=== PATIENT | female | born 1985 | race African-American/Black ===

== ENCOUNTER 2017-05-21 14:00 | Emergency (ER) | payer OTHER ==
[~2017-05-21] VITALS: Ht 175.3 cm; Wt 81.6 kg
[~2017-05-21 14:00] MED LIST: CYCL10TA2 PO; NAPR-683 PO
[2017-05-21] MEDS ORDERED: ACETAMINOPHEN 325 MG TABLET. PO ONE (14:30)
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
[2017-05-21] MEDS ORDERED: CYCL5TAB PO (15:33)
[2017-05-21] MEDS ORDERED: IBUP-1060 PO (15:33)
[2017-05-21 15:50] VITALS: BP 127/81
== END 2017-05-21 16:03 | disposition home or self-care (01) ==
LOC: ER 14:00
DX: M25.511 Pain in right shoulder (principal); M54.5 Low back pain; Z88.0 Allergy status to penicillin; Z88.6 Allergy status to analgesic agent; Z91.018 Allergy to other foods; J45.909 Unspecified asthma, uncomplicated; V49.88XA Car occupant (driver) (passenger) injured in other specified transport accidents, initial encounter; Y93.89 Activity, other specified; Y99.8 Other external cause status; Y92.488 Other paved roadways as the place of occurrence of the external cause
CPT/HCPCS: 71020; 72100; 73030; 81025; 99284

== ENCOUNTER 2017-10-10 03:39 | Emergency (ER) | payer OTHER | END 2017-10-10 05:00 | disposition home or self-care (01) | LOC: ER 03:39 | DX: M25.511 Pain in right shoulder (principal); J45.909 Unspecified asthma, uncomplicated; Z88.0 Allergy status to penicillin; Z88.6 Allergy status to analgesic agent; Z91.018 Allergy to other foods; X58.XXXA Exposure to other specified factors, initial encounter; Y93.67 Activity, basketball; Y99.8 Other external cause status; Y92.89 Other specified places as the place of occurrence of the external cause | CPT/HCPCS: 99283 ==

== ENCOUNTER 2017-12-25 08:28 | Emergency (ER) | payer OTHER ==
[2017-12-25 08:43] LABS: BILIRUBIN,URINE NEGATIVE (NEG); CLARITY,URINE CLEAR; COLOR,URINE YELLOW; GLUCOSE,URINE NEGATIVE (NEG); NITRITE,URINE NEGATIVE (NEG); PROTEIN,URINE NEGATIVE (NEG-TRACE)
[2017-12-25 08:44] LABS: URINE HCG POC HCG NEGATIVE (Negative)
[2017-12-25 08:51] LABS: BACTERIA,URINE MODERATE /HPF (0-FEW); SQUAMOUS EPITHELIAL CELL,UR FEW /LPF
[2017-12-25] MEDS: ONDANSETRON PF 4 MG/2 ML VIAL. IV (09:25)
[2017-12-25] MEDS: IV NORMAL SALINE 1000ML BAG 1,000 ML IV (09:25)
[2017-12-25] MEDS: PANTOPRAZOLE IV PUSH 40 MG VIAL. IVP (09:25)
[2017-12-25] MEDS: DICYCLOMINE HCL 10 MG CAPSULE PO (09:26)
[2017-12-25 09:40] LABS: ADD MAN DIFF? NO
[2017-12-25 10:02] LABS: ANION GAP 7 (6-14); BLOOD UREA NITROGEN 9 mg/dL (7-20); BUN/CREATININE RATIO 10 (6-20); CALCIUM 8.7 mg/dL (8.5-10.1); CARBON DIOXIDE 26 mmol/L (21-32); CHLORIDE 106 mmol/L (98-107); CREATININE 0.9 mg/dL (0.6-1.0); GFR 88.4; GLUCOSE 90 mg/dL (70-99); POTASSIUM 3.7 mmol/L (3.5-5.1); SODIUM 139 mmol/L (136-145)
[2017-12-25 10:04] LABS: ETHANOL < 10 mg/dL (0-10)
[2017-12-25 10:07] LABS: ALBUMIN 3.6 g/dL (3.4-5.0); ALBUMIN/GLOBULIN RATIO 0.9 (1.0-1.7); ALK PHOS 66 U/L (46-116); ALT (SGPT) 16 U/L (14-59); AST (SGOT) 10 U/L (15-37); BASO % 0 % (0-3); EOS % 1 % (0-3); HEMATOCRIT 40.1 % (36.0-47.0); HEMOGLOBIN 13.4 g/dL (12.0-15.5); LIPASE 96 U/L (73-393); LYMPH # 1.4 x10^3/uL (1.0-4.8); LYMPH % 25 % (24-48); MEAN CORPUSCULAR HEMOGLOBIN 27 pg (25-35); MEAN CORPUSCULAR HGB CONC 33 g/dL (31-37); MEAN CORPUSCULAR VOLUME 81 fL (79-100); MONO # 0.4 x10^3/uL (0.0-1.1); MONO % 7 % (0-9); NEUT # 3.7 x10^3uL (1.8-7.7); NEUT % 67 % (31-73); PLATELET COUNT 216 x10^3/uL (140-400); RED BLOOD COUNT 4.98 x10^6/uL (3.50-5.40); RED CELL DISTRIBUTION WIDTH 13.8 % (11.5-14.5); TOTAL BILIRUBIN 0.3 mg/dL (0.2-1.0); TOTAL PROTEIN 7.4 g/dL (6.4-8.2); WHITE BLOOD COUNT 5.6 x10^3/uL (4.0-11.0)
[2017-12-25 10:09] LABS: AMPHETAMINE/METHAMPHETAMINE NEG (NEG); BARBITURATES NEG (NEG); BENZODIAZEPINES NEG (NEG); CANNABINOIDS POS (NEG); COCAINE NEG (NEG); ETHANOL, URINE NEG (NEG); METHADONE NEG (NEG); OPIATES NEG (NEG); PHENCYCLIDINE NEG (NEG)
== END 2017-12-25 11:03 | disposition home or self-care (01) ==
LOC: ER 08:28
DX: R11.2 Nausea with vomiting, unspecified (principal); R19.7 Diarrhea, unspecified; R10.84 Generalized abdominal pain; J45.909 Unspecified asthma, uncomplicated; Z88.0 Allergy status to penicillin; Z88.6 Allergy status to analgesic agent; Z91.018 Allergy to other foods
CPT/HCPCS: 36415; 80053; 80307; 81001; 81025; 83690; 85025; 87086; 96361; 96374; 96375; 99285-25; C9113; G0480; J2405; J7030

== ENCOUNTER 2019-02-04 02:43 | Emergency (ER) | payer MEDICAID, OTHER ==
[~2019-02-04] VITALS: Ht 175.3 cm; Wt 78.0 kg
[~2019-02-04 02:43] MED LIST changes: +ACET-704 PO; +BUTA1CAP31 PO; +CYCL5TAB PO; +DICY20TA3 PO; +IBUP-1060 PO; +ONDA4TAB10 SL; +ONDA4TAB7 PO; +SULF1TAB24 PO
[2019-02-04 03:30] VITALS: BP 106/55
[2019-02-04] MEDS ORDERED: TETRACAINE 0.5% OPHTH SOLUTION 4ML BOTTLE. ONE (03:34)
[2019-02-04] MEDS ORDERED: FLUORESCEIN OPHTH TEST STRIP. ONE (03:34)
[2019-02-04] MEDS ORDERED: ERYTHROMYCIN 0.5% OPHTH OINTMENT 1GM TUBE. ONE (03:35)
[2019-02-04] MEDS ORDERED: ERYT1OIN6 OP (03:50)
--- NOTE | 2019-02-04 03:50 | PHYS DOC ---
Past Medical History Past Medical History: Asthma Additional Past Medical Histor: seasonal allergies Past Surgical History: Additional Past Surgical Histo: facial surgery. Alcohol Use: Occasionally Drug Use: Marijuana Adult General Chief Complaint Chief Complaint: EYE PROBLEMS HPI HPI Patient is a 33 year old [f__sex] who presents with [] Review of Systems Review of Systems Constitutional: Denies fever or chills [] Eyes: Denies change in visual acuity, redness, or eye pain [] HENT: Denies nasal congestion or sore throat [] Respiratory: Denies cough or shortness of breath [] Cardiovascular: No additional information not addressed in HPI [] GI: Denies abdominal pain, nausea, vomiting, bloody stools or diarrhea [] : Denies dysuria or hematuria [] Musculoskeletal: Denies back pain or joint pain [] Integument: Denies rash or skin lesions [] Neurologic: Denies headache, focal weakness or sensory changes [] Endocrine: Denies polyuria or polydipsia [] All other systems were reviewed and found to be within normal limits, except as documented in this note. Current Medications Current Medications Current Medications Medications (Trade) Dose Ordered Sig/Isidro Start Time Stop Time Status Last Admin Dose Admin Erythromycin (Romycin) 1 inch STK-MED ONCE 02/04/19 03:35 02/04/19 03:36 DC Fluorescein Sodium (Ful-Huyen) 1 strip STK-MED ONCE 02/04/19 03:34 02/04/19 03:36 DC Tetracaine HCl (Tetracaine) 40 drop STK-MED ONCE 02/04/19 03:34 02/04/19 03:36 DC Allergies Allergies Allergies Coded Allergies Type Severity Reaction Last Updated Verified tomato Allergy Severe anaphylaxis 04/04/17 Yes Penicillins Allergy Intermediate shortness of breath 04/04/17 Yes aspirin Allergy Intermediate flares asthma up 04/04/17 Yes Physical Exam Physical Exam Constitutional: Well developed, well nourished, no acute distress, non-toxic appearance. [] HENT: Normocephalic, atraumatic, bilateral external ears normal, oropharynx moist, no oral exudates, nose normal. [] Eyes: PERRLA, EOMI, conjunctiva normal, no discharge. [] Neck: Normal range of motion, no tenderness, supple, no stridor. [] Cardiovascular:Heart rate regular rhythm, no murmur [] Lungs & Thorax: Bilateral breath sounds clear to auscultation [] Abdomen: Bowel sounds normal, soft, no tenderness, no masses, no pulsatile masses. [] Skin: Warm, dry, no erythema, no rash. [] Back: No tenderness, no CVA tenderness. [] Extremities: No tenderness, no cyanosis, no clubbing, ROM intact, no edema. [] Neurologic: Alert and oriented X 3, normal motor function, normal sensory function, no focal deficits noted. [] Psychologic: Affect normal, judgement normal, mood normal. [] EKG EKG [] Radiology/Procedures Radiology/Procedures [] Course & Med Decision Making Course & Med Decision Making Pertinent Labs and Imaging studies reviewed. (See chart for details) [] Dragon Disclaimer Dragon Disclaimer This electronic medical record was generated, in whole or in part, using a voice recognition dictation system. Departure Departure Impression: Primary Impression: Corneal abrasion Disposition: HOME, SELF-CARE Condition: STABLE Referrals: NO PCP (PCP) Patient Instructions: Eye - Corneal Abrasion, [id number] Scripts Erythromycin Base (Erythromycin) 1 Gm Oint...g. 0.25 INCH OP QID for 5 Days, MISC Prov: XI NOGUERA DO 02/04/19 Problem Qualifiers Primary Impression: Corneal abrasion Encounter type: initial encounter Laterality: left Qualified Codes: S05.02XA - Injury of conjunctiva and corneal abrasion without foreign body, left eye, initial encounter XI NOGUERA DO Feb 04, 2019 03:50
[2019-02-04] MEDS ORDERED: ERYTHROMYCIN 0.5% OPHTH OINTMENT 1GM TUBE. OS ONE (04:00)
[2019-02-04] MEDS ORDERED: TETRACAINE 0.5% OPHTH SOLUTION 4ML BOTTLE. OS ONE (04:00)
[2019-02-04] MEDS ORDERED: FLUORESCEIN OPHTH TEST STRIP. OS ONE (04:00)
[2019-02-04] MEDS ORDERED: IBUPROFEN 200 MG TABLET. PO ONE (04:30)
== END 2019-02-04 03:57 | disposition home or self-care (01) ==
LOC: ER 02:43
DX: S05.02XA Injury of conjunctiva and corneal abrasion without foreign body, left eye, initial encounter (principal); J45.909 Unspecified asthma, uncomplicated; Z98.890 Other specified postprocedural states; Z88.6 Allergy status to analgesic agent; Z88.0 Allergy status to penicillin; Z91.018 Allergy to other foods; X58.XXXA Exposure to other specified factors, initial encounter; Y93.89 Activity, other specified; Y92.89 Other specified places as the place of occurrence of the external cause; Y99.8 Other external cause status
CPT/HCPCS: 99283

== ENCOUNTER 2019-11-16 14:46 | Emergency (ER) | payer BC, MEDICAID ==
[~2019-11-16] VITALS: Ht 175.3 cm; Wt 82.0 kg
[2019-11-16 14:46] VITALS: BP 106/55
[~2019-11-16 14:46] MED LIST changes: +ERYT1OIN6 OP
[2019-11-16] MEDS ORDERED: diphenhydrAMINE HCL 25 MG CAPSULE PO ONE (15:00)
[2019-11-16] MEDS ORDERED: DEXAMETHASONE SOD PHOS 20 MG/5 ML VIAL. IM ONE (15:00)
[2019-11-16] MEDS ORDERED: PRED20TA PO (15:40)
--- NOTE | 2019-11-16 15:41 | PHYS DOC ---
Past Medical History Past Medical History: Asthma Additional Past Medical Histor: seasonal allergies Past Surgical History: Additional Past Surgical Histo: facial surgery. Smoking Status: Light Tobacco Smoker Alcohol Use: None Drug Use: Marijuana General Adult EDM: Chief Complaint: ALLERGIC REACTION HPI: HPI: Patient is a 34 year old [f__sex] who presents with [] Review of Systems: Review of Systems: Constitutional: Denies fever or chills. [] Eyes: Denies change in visual acuity. [] HENT: Denies nasal congestion or sore throat. [] Respiratory: Denies cough or shortness of breath. [] Cardiovascular: Denies chest pain or edema. [] GI: Denies abdominal pain, nausea, vomiting, bloody stools or diarrhea. [] : Denies dysuria. [] Musculoskeletal: Denies back pain or joint pain. [] Integument: Denies rash. [] Neurologic: Denies headache, focal weakness or sensory changes. [] Endocrine: Denies polyuria or polydipsia. [] Lymphatic: Denies swollen glands. [] Psychiatric: Denies depression or anxiety. [] Heart Score: Risk Factors: Risk Factors: DM, Current or recent (<one month) smoker, HTN, HLP, family history of CAD, obesity. Risk Scores: Score 0 - 3: 2.5% MACE over next 6 weeks - Discharge Home Score 4 - 6: 20.3% MACE over next 6 weeks - Admit for Clinical Observation Score 7 - 10: 72.7% MACE over next 6 weeks - Early Invasive Strategies Current Medications: Current Medications Medications (Trade) Dose Ordered Sig/[facility] Start Time Stop Time Status Last Admin Dose Admin Dexamethasone Sodium Phosphate (Decadron) 10 mg 1X ONCE 11/16/19 15:00 11/16/19 15:03 DC 11/16/19 15:07 10 MG Diphenhydramine HCl (Benadryl) 50 mg 1X ONCE 11/16/19 15:00 11/16/19 15:03 DC 11/16/19 15:07 50 MG Allergies: Allergies: Allergies Coded Allergies Type Severity Reaction Last Updated Verified tomato Allergy Severe anaphylaxis 04/04/17 Yes Penicillins Allergy Intermediate shortness of breath 04/04/17 Yes aspirin Allergy Intermediate flares asthma up 04/04/17 Yes Physical Exam: PE: Constitutional: Well developed, well nourished, no acute distress, non-toxic appearance. [] HENT: Normocephalic, atraumatic, bilateral external ears normal, oropharynx moist, no oral exudates, nose normal. [] Eyes: PERRLA, EOMI, conjunctiva normal, no discharge. [] Neck: Normal range of motion, no tenderness, supple, no stridor. [] Cardiovascular:Heart rate regular rhythm, no murmur [] Lungs & Thorax: Bilateral breath sounds clear to auscultation [] Abdomen: Bowel sounds normal, soft, no tenderness, no masses, no pulsatile masses. [] Skin: Warm, dry, no erythema, no rash. [] Back: No tenderness, no CVA tenderness. [] Extremities: No tenderness, no cyanosis, no clubbing, ROM intact, no edema. [] Neurologic: Alert and oriented X 3, normal motor function, normal sensory function, no focal deficits noted. [] Psychologic: Affect normal, judgement normal, mood normal. [] Current Patient Data: Vital Signs: Vital Signs Date Time Temp Pulse Resp B/P (MAP) Pulse Ox O2 Delivery O2 Flow Rate FiO2 11/16/19 14:46 98.4 68 18 106/55 (72) 98 Room Air 98.4 EKG: EKG: [] Radiology/Procedures: Radiology/Procedures: [] Course & Med Decision Making: Course & Med Decision Making Pertinent Labs and Imaging studies reviewed. (See chart for details) [] Dragon Disclaimer: Dragon Disclaimer: This electronic medical record was generated, in whole or in part, using a voice recognition dictation system. Departure Departure Impression: Primary Impression: Wasp sting Qualified Codes: T63.463A - Toxic effect of venom of wasps, assault, initial encounter Additional Impression: Local reaction to insect sting Qualified Codes: T63.483A - Toxic effect of venom of other arthropod, assault, initial encounter Disposition: 01 HOME, SELF-CARE Condition: STABLE Referrals: NO PCP (PCP) Patient Instructions: Bee, Wasp, or Hornet Sting Additional Instructions: Fill the prescription and take as directed. He can take Benadryl as needed for itching. Recommend taking an oral antihistamine such as Zyrtec once a day [id number]. Apply ice compresses to the swollen area as needed for comfort. Follow-up with your primary care doctor return to the ER if you develop symptoms of infection including fever, worsening redness, warmth, or drainage Scripts Prednisone (PREDNISONE) 20 Mg Tablet 1 TAB PO UD for 12 Days, #15 TAB begin taking 11/17/19 2 tabs by mouth days 1,2 then 1 tabs by mouth days 3,4 then 0.5 tab by mouth days 5, 6 Prov: MARINA PETERS APRN 11/16/19 Justicifation of Admission Dx: Justifications for Admission: Justification of Admission Dx: MARINA Cherry APRN Nov 16, 2019 15:41
== END 2019-11-16 16:00 | disposition home or self-care (01) ==
LOC: ER 14:46
DX: T63.461A Toxic effect of venom of wasps, accidental (unintentional), initial encounter (principal); L29.8 Other pruritus; R06.02 Shortness of breath; J45.909 Unspecified asthma, uncomplicated; Z72.0 Tobacco use; Y92.89 Other specified places as the place of occurrence of the external cause
CPT/HCPCS: 96372; 99283; J1100; Q0163

== ENCOUNTER 2020-01-29 05:12 | Emergency (ER) | payer MEDICAID ==
[~2020-01-29] VITALS: Ht 175.3 cm; Wt 65.9 kg
[~2020-01-29 05:12] MED LIST changes: +PRED20TA PO
[2020-01-29 05:27] VITALS: BP 104/69
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
== END 2020-01-29 06:00 | disposition home or self-care (01) ==
LOC: ER 05:12
DX: K64.9 Unspecified hemorrhoids (principal); M54.5 Low back pain; R53.83 Other fatigue; F12.90 Cannabis use, unspecified, uncomplicated; Z98.890 Other specified postprocedural states; Z88.0 Allergy status to penicillin; Z91.018 Allergy to other foods; Z88.6 Allergy status to analgesic agent
CPT/HCPCS: 81025; 99282

== ENCOUNTER 2020-03-08 14:17 | Emergency (ER) | payer OTHER, MEDICAID ==
[~2020-03-08] VITALS: Ht 175.3 cm; Wt 64.9 kg
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
[2020-03-08] MEDS ORDERED: CYCL10TA2 PO (18:05)
[2020-03-08] MEDS ORDERED: METH4TAB2 PO (18:05)
[2020-03-08 18:12] VITALS: BP 119/64
== END 2020-03-08 18:12 | disposition home or self-care (01) ==
LOC: ER 14:25
DX: S13.9XXA Sprain of joints and ligaments of unspecified parts of neck, initial encounter (principal); M25.512 Pain in left shoulder; M25.552 Pain in left hip; R51.9 Headache, unspecified; J45.909 Unspecified asthma, uncomplicated; Z88.0 Allergy status to penicillin; Z88.6 Allergy status to analgesic agent; Z91.018 Allergy to other foods; V49.49XA Driver injured in collision with other motor vehicles in traffic accident, initial encounter; Y92.488 Other paved roadways as the place of occurrence of the external cause; Y93.89 Activity, other specified; Y99.8 Other external cause status
CPT/HCPCS: 72125; 73030; 73502; 81025; 99284

== ENCOUNTER 2020-04-11 21:15 | Emergency (ER) | payer MEDICAID, OTHER ==
[~2020-04-11] VITALS: Ht 175.3 cm; Wt 70.4 kg
[~2020-04-11 21:15] MED LIST changes: +METH4TAB2 PO
[2020-04-11 21:26] VITALS: BP 119/68
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
[2020-04-11] MEDS ORDERED: ORPH100T PO (22:25)
[2020-04-11] MEDS ORDERED: HYDROcodone/APAP 5/325MG 1 TAB TABLET PO ONE (23:00)
[2020-04-11] MEDS ORDERED: diazePAM 5 MG TABLET PO ONE (23:00)
== END 2020-04-11 23:45 | disposition home or self-care (01) ==
LOC: ER 21:15
DX: M54.2 Cervicalgia (principal); J45.909 Unspecified asthma, uncomplicated; F12.90 Cannabis use, unspecified, uncomplicated; Z98.890 Other specified postprocedural states; Z88.0 Allergy status to penicillin; Z88.8 Allergy status to other drugs, medicaments and biological substances; Z91.018 Allergy to other foods
CPT/HCPCS: 81025; 99283

== ENCOUNTER 2020-11-18 23:25 | Emergency (ER) | payer MEDICAID ==
[~2020-11-18] VITALS: Ht 175.3 cm; Wt 65.5 kg
[~2020-11-18 23:25] MED LIST changes: +ORPH100T PO
[2020-11-19 00:56] LABS: BILIRUBIN,URINE NEGATIVE (NEG); CLARITY,URINE CLEAR; COLOR,URINE YELLOW; NITRITE,URINE NEGATIVE (NEG); PROTEIN,URINE NEGATIVE (NEG-TRACE); UROBILINOGEN,URINE 0.2 mg/dL (0.2 mg/dL)
[2020-11-19 01:04] LABS: BACTERIA,URINE FEW /HPF (0-FEW); RBC,URINE 0 /HPF (0-2)
--- NOTE | 2020-11-19 01:40 | PHYS DOC ---
Past Medical History Past Medical History: Asthma Additional Past Medical Histor: seasonal allergies Past Surgical History: Additional Past Surgical Histo: jaw fx repair Smoking Status: Never Smoker Alcohol Use: Occasionally Drug Use: Marijuana General Adult EDM: Chief Complaint: VOMITING IN HPI: HPI: Patient is a 35 year old female who is currently 16 weeks presents with a chief complaint of headache nausea vomiting and diarrhea. Patient states around 1730 hrs. she had a frontal headache. Patient states shortly after that she ate dinner and became nauseous and vomited as well as had diarrhea. Patient denies any associated abdominal pain pelvic pain or vaginal discharge or bleeding. Review of Systems: Review of Systems: Review of systems: Constitutional symptoms- No fever, no chills. Eyes- No Discharge, No Visual Loss Respiratory symptoms- No shortness of breath, No wheezing, No Dyspnea on Exertion Cardiovascular Systems; No chest pain, No Palpitations, No syncope Gastrointestinal symptoms: NO abdominal pain, Positive nausea, Positive vomiting no diarrhea. Genitourinary symptoms: No dysuria. Musculoskeletal symptoms: No back pain No extremity pain. NEUROLOGICAL Symptoms: Positive headache, no generalized weakness; No focal Weakness Heart Score: C/O Chest Pain: N/A Risk Factors: Risk Factors: DM, Current or recent (<one month) smoker, HTN, HLP, family history of CAD, obesity. Risk Scores: Score 0 - 3: 2.5% MACE over next 6 weeks - Discharge Home Score 4 - 6: 20.3% MACE over next 6 weeks - Admit for Clinical Observation Score 7 - 10: 72.7% MACE over next 6 weeks - Early Invasive Strategies Allergies: Allergies: Allergies Coded Allergies Type Severity Reaction Last Updated Verified tomato Allergy Severe anaphylaxis 04/04/17 Yes Penicillins Allergy Intermediate shortness of breath 04/04/17 Yes aspirin Allergy Intermediate flares asthma up 04/04/17 Yes Physical Exam: PE: General: alert, no acute distress. Skin: warm, dry and intact. Head:: Normocephalic, atraumatic. Neck: Trachea midline. Eyes: EOMI, Normal conjunctiva, No drainage CARDIOVASCULAR: Regular rate and rhythm RESPIRATORY: No respiratory distress Back: Full range of motion. MUSCULOSKELETAL: Full range of motion of bilateral upper and lower extremities. GASTROINTESTINAL: Abdomen soft without rebound or guarding. NEUROLOGICAL: Alert and noted to person, place and time. No neurological deficits observed Psychiatric: Cooperative. Normal judgment Current Patient Data: Labs: Laboratory Tests Test 11/19/20 00:01 11/19/20 00:03 Urine Collection Type Unknown Urine Color Yellow Urine Clarity Clear Urine pH 7.0 (<5.0-8.0) Urine Specific Huffman 1.010 (1.000-1.030) Urine Protein Negative mg/dL (NEG-TRACE) Urine Glucose (UA) Negative mg/dL (NEG) Urine Ketones (Stick) Trace mg/dL (NEG) Urine Blood Negative (NEG) Urine Nitrite Negative (NEG) Urine Bilirubin Negative (NEG) Urine Urobilinogen Dipstick 0.2 mg/dL (0.2 mg/dL) Urine Leukocyte Esterase Negative (NEG) Urine RBC 0 /HPF (0-2) Urine WBC 1-4 /HPF (0-4) Urine Squamous Epithelial Cells Mod /LPF Urine Bacteria Few /HPF (0-FEW) POC Urine HCG, Qualitative Hcg positive (Negative) Vital Signs: Vital Signs Date Time Temp Pulse Resp B/P (MAP) Pulse Ox O2 Delivery O2 Flow Rate FiO2 11/19/20 00:05 98.1 61 16 110/53 (72) 98 Room Air 98.1 EKG: EKG: [] Radiology/Procedures: Radiology/Procedures: [] Course & Med Decision Making: Course & Med Decision Making Pertinent Labs and Imaging studies reviewed. (See chart for details) [] Patient was evaluated for chief complaint. Work-up consisted of urinary analysis. Urine within normal limits. Treatment included Tylenol for pain. Patient p.o. challenged without any episodes of vomiting. heart tones obtained. Pb Disclaimer: Pb Disclaimer: This electronic medical record was generated, in whole or in part, using a voice recognition dictation system. Departure Departure Impression: Primary Impression: Nausea and vomiting Additional Impressions: Headache Disposition: HOME / SELF CARE / HOMELESS Condition: STABLE Referrals: NO PCP (PCP) Patient Instructions: Nausea and Vomiting, ELIZABETH ZIMMER I DO Nov 19, 2020 01:40
[2020-11-19] MEDS ORDERED: ACETAMINOPHEN 325 MG TABLET. PO ONE (02:00)
[2020-11-19 02:30] VITALS: BP 103/59
== END 2020-11-19 03:02 | disposition home or self-care (01) ==
LOC: ER 23:25
DX: O21.9 Vomiting of pregnancy, unspecified (principal); R51.9 Headache, unspecified; R19.7 Diarrhea, unspecified; O99.512 Diseases of the respiratory system complicating pregnancy, second trimester; J45.909 Unspecified asthma, uncomplicated; Z3A.16 16 weeks gestation of pregnancy; Z98.890 Other specified postprocedural states; Z88.0 Allergy status to penicillin; Z88.6 Allergy status to analgesic agent; Z91.018 Allergy to other foods
CPT/HCPCS: 81001; 81025; 99283

== ENCOUNTER 2021-07-02 12:04 | Emergency (ER) | payer MEDICAID ==
[~2021-07-02] VITALS: Ht 175.3 cm; Wt 74.0 kg
[~2021-07-02 12:04] MED LIST changes: +CYCL10TA19 PO; -CYCL10TA2 PO; +DICY20TA PO; -DICY20TA3 PO
--- NOTE | 2021-07-02 12:15 | PHYS DOC ---
Past Medical History Past Medical History: Asthma Additional Past Medical Histor: seasonal allergies Past Surgical History: Additional Past Surgical Histo: jaw fx repair Smoking Status: Never Smoker Alcohol Use: Occasionally Drug Use: Marijuana General Adult EDM: Chief Complaint: ALLERGIC REACTION HPI: HPI: Patient is a 36 year old female who presents with report of feeling as if she is having an allergic reaction. She reports that she feels like her lips are swelling and she feels like her throat and mouth are itchy. Symptoms began about 30 minutes ago, when she ate a hamburger with catch up on it. She reports that she has an allergy to tomatoes. She has not previously experienced anaphylaxis. She has an EpiPen, but she did not take it to work with her today, so she did not use it. She did not take any antihistamines or any other medicines prior to arrival. She denies dyspnea, cough, wheezing. No hives or skin rash noted. No difficulty swallowing, no difficulty phonating. Review of Systems: Review of Systems: Constitutional: Denies fever or chills. [] Eyes: Denies change in visual acuity. [] HENT: Denies nasal congestion or sore throat. She feels as if her lips and mouth are itchy and swollen. Respiratory: Denies cough or shortness of breath. Denies wheezing or stridor. Cardiovascular: Denies chest pain or edema. [] GI: Denies abdominal pain, nausea, vomiting Musculoskeletal: Denies back pain or joint pain. [] Integument: Denies rash. [] Neurologic: Denies headache, focal weakness or sensory changes. [] Psychiatric: Mild anxiety as it pertains to current clinical condition. [] Heart Score: C/O Chest Pain: No Risk Factors: Risk Factors: DM, Current or recent (<one month) smoker, HTN, HLP, family history of CAD, obesity. Risk Scores: Score 0 - 3: 2.5% MACE over next 6 weeks - Discharge Home Score 4 - 6: 20.3% MACE over next 6 weeks - Admit for Clinical Observation Score 7 - 10: 72.7% MACE over next 6 weeks - Early Invasive Strategies Allergies: Allergies: Allergies Coded Allergies Type Severity Reaction Last Updated Verified tomato Allergy Severe anaphylaxis 04/04/17 Yes Penicillins Allergy Intermediate shortness of breath 04/04/17 Yes aspirin Allergy Intermediate flares asthma up 04/04/17 Yes Physical Exam: PE: Constitutional: Well developed, well nourished, no acute distress, non-toxic appearance. [] HENT: Normocephalic, atraumatic, oropharynx is patent and clear, no oral or oropharyngeal edema, erythema, no rash, uvula is midline, no uvular edema, mucous membranes are moist. Voice is clear, no pooling of secretions, voice is not muffled. There is some very subtle upper lip soft tissue swelling. No other areas of facial swelling are noted. External canals are normal bilaterally. Eyes: Conjunctiva normal, no discharge. No periorbital edema. Neck: Normal range of motion, no tenderness, supple, no stridor. Trachea is midline. Cardiovascular:Heart rate regular rhythm, no edema, warm and well perfused, bilateral +2 radial pulses Lungs & Thorax: Bilateral breath sounds clear to auscultation, no rales, rhonchi or wheezes, no tachypnea, no stridor, no distress Abdomen: [place] is soft, nondistended, nontender to palpation. Skin: Warm, dry, no erythema, no rash. No warmth, no erythema, no urticaria or any rash noted on her skin. Back: No tenderness, no CVA tenderness. [] Extremities: No tenderness, no cyanosis, no clubbing, ROM intact, no edema. [] Neurologic: Alert and oriented X 3, normal motor function, normal sensory function, no focal deficits noted. [] Psychologic: She is mildly anxious but cooperative. EKG: EKG: [] Radiology/Procedures: Radiology/Procedures: [] Course & Med Decision Making: Course & Med Decision Making Pertinent Labs and Imaging studies reviewed. (See chart for details) The patient is given IV Benadryl, IV Pepcid and IV Solu-Medrol. She is resting comfortably. She is been observed for more than 2 hours here in the ER, she manifest no evidence of distress. There is no evidence of any facial or lip swelling, no evidence of oropharyngeal swelling. No evidence of distress, anaphylaxis or shock. She reports that she thinks that her EpiPen may be getting close to , so I will prescribe a new EpiPen for her. I discussed home care instructions for her, she may take [id number] antihistamines as needed. There is no current indication for further invasive exams, imaging labs, or admission at this time based on current clinical presentation. Return precautions are given. Dragon Disclaimer: Dragon Disclaimer: This electronic medical record was generated, in whole or in part, using a voice recognition dictation system. Departure Departure Impression: Primary Impression: Allergic reaction Qualified Codes: T78.40XA - Allergy, unspecified, initial encounter Disposition: HOME / SELF CARE / HOMELESS Condition: GOOD Referrals: NO PCP (PCP) Patient Instructions: Allergies, Generic Additional Instructions: Return to the ER for severe facial swelling, tongue swelling, throat swelling, wheezing, difficulty breathing, inability to control secretions, difficulty speaking or for any other concerns. Take the medication as directed. Use your EpiPen for severe allergic reaction only. Contact your primary care doctor for follow-up. Make sure to avoid your known allergens, such as tomato, aspirin and penicillin products. You may continue pumping and breast-feeding as usual. Scripts Epinephrine (EPIPEN 2-JU) 0.3 Mg/0.3 Ml Auto.injct 1 SYR IM ONCE for anaphylaxis for 1 Day, #1 PACKET 1 Refill Prov: MIKY PEOPLES DO 07/02/21 Famotidine (PEPCID) 20 Mg Tablet 20 MG PO BID, #20 TAB Prov: MIKY PEOPLES DO 07/02/21 Prednisone (PREDNISONE) 50 Mg Tablet 1 TAB PO DAILY for 4 Days, #4 TAB Prov: MIKY PEOPLES DO 07/02/21 MIKY PEOPLES DO Jul 02, 2021 12:15
[2021-07-02] MEDS ORDERED: methylPREDNISolone SOD SUCC PF 125 MG/2 ML VIAL. IV ONE (12:30)
[2021-07-02] MEDS ORDERED: FAMOTIDINE 20 MG/2 ML VIAL IVP ONE (12:30)
[2021-07-02] MEDS ORDERED: diphenhydrAMINE 50 MG/ML VIAL IVP ONE (12:30)
[2021-07-02] MEDS ORDERED: PRED50TA PO (14:24)
[2021-07-02] MEDS ORDERED: FAMO-63 PO (14:24)
[2021-07-02] MEDS ORDERED: EPIPEN 2-P0.3 MG/0.3 IM (14:24)
[2021-07-02 14:27] VITALS: BP 123/75
== END 2021-07-02 14:33 | disposition home or self-care (01) ==
LOC: ER 12:04
DX: T78.40XA Allergy, unspecified, initial encounter (principal); J45.909 Unspecified asthma, uncomplicated; Z88.0 Allergy status to penicillin; Z88.6 Allergy status to analgesic agent; Z91.018 Allergy to other foods
CPT/HCPCS: 96374; 96375; 99284; J1200; J2930; J3490